=== PATIENT | female | born 1970 | race Caucasian/White ===

== ENCOUNTER → 2017-03-26 13:09 | Outpatient (CLI) | payer BC | END | disposition home or self-care (01) | LOC: D.RAD 13:09 | DX: Z85.3 Personal history of malignant neoplasm of breast (principal) ==

== ENCOUNTER → 2019-08-22 07:34 | Outpatient (CLI) | payer BC | END | disposition home or self-care (01) | LOC: D.NM 07:34 | PROVIDERS: ATTEND Family Medicine | DX: K30 Functional dyspepsia (principal) ==

== ENCOUNTER → 2019-09-01 08:20 | Outpatient (CLI) | payer BC | END | disposition home or self-care (01) | LOC: D.MRI 08:20 | PROVIDERS: ATTEND Internal Medicine Gastroenterology | DX: R10.84 Generalized abdominal pain (principal) ==